=== PATIENT | male | born 1970 | race Hispanic/Latino ===

== ENCOUNTER 2016-12-14 07:19 | Inpatient (IN) | payer SELFPAY ==
[2016-12-14] MEDS ORDERED: Pantoprazole 40 MG VIAL ONE (07:47)
[2016-12-14 08:12] LABS: Bilirubin Unable to Interpret (Negative); Blood, Urine Unable to Interpret (Negative); Glucose, Urine (Dipstick) Unable to Interpret mg/dL (Negative); Ketone, Urine Unable to Interpret mg/dL (Negative); Nitrite Unable to Interpret (Negative); Protein, Urine (Dipstick) Unable to Interpret mg/dL (Neg-Trace); Urobilinogen UNABLE TO INTERPRET mg/dL (0.2-1.0)
[2016-12-14 08:17] LABS: Bacteria/HPF 2+ HPF (None Seen); Hyaline Casts/LPF 0-3 HYALINE CAST LPF (0-3 Hyaline); Squamous Epithelial 0-3 HPF (0-3)
[2016-12-14 08:18] LABS: Transitional Epithelial 0-3 HPF (0-3)
[2016-12-14 08:21] LABS: #Eosinphils 0.2 thou/uL (0.0-0.7); #Lymphocytes 1.3 thou/uL (1.20-3.40); #Monocytes 0.6 thou/uL (0.11-0.59); #Neutrophils 6.7 thou/uL (1.40-6.50); %Eosinophils 2.8 % (0.0-10.0); %Lymphocytes 14.6 % (21.0-51.0); Hematocrit 45.6 % (42.0-52.0); Mean Platelet Volume 10.6 fL (7.4-10.4); Red Blood Cell (RBC) Count 5.17 mill/uL (4.70-6.10); White Blood Cell (WBC) Count 8.8 thou/uL (4.8-10.8)
[2016-12-14 09:11] LABS: Calcium 8.8 mg/dL (7.8-10.44); Chloride 108 mmol/L (98-107)
[2016-12-14 09:12] LABS: Globulin 2.8 g/dL (2.4-3.5); Protein, Total 6.6 g/dL (6.0-8.3)
[2016-12-14 09:14] LABS: Anion Gap 9 mmol/L (10-20); Bilirubin, Total 0.8 mg/dL (0.2-1.2); Carbon Dioxide 26 mmol/L (22-29)
[2016-12-14 09:15] LABS: Alkaline Phosphatase 95 U/L (40-150); Calc. Creatinine Clearance 0 mL/min (70-130); Estimated GFR-MDRD Greater than 90
[2016-12-14 09:16] LABS: BUN (Urea Nitrogen) 7 mg/dL (8.9-20.6)
[2016-12-14 09:17] LABS: AST (SGOT) 21 U/L (5-34)
[2016-12-14 09:18] LABS: ALT (SGPT) 20 U/L (8-55); Lipase 18 U/L (8-78)
--- NOTE | 2016-12-14 09:35 | CT ---
ABDOMEN AND PELVIS CT SCAN WITHOUT IV CONTRAST: Date: 12/14/16 HISTORY: 46-year-old male with hematuria, with right flank pain and right lower quadrant pain. FINDINGS: Lung bases are clear. Small hiatal hernia with some air within a mildly dilated distal esophagus. Vi sualized liver, gallbladder, pancreas, spleen, and adrenal glands are unremarkable. No renal calculu s or acute obstruction. There is an approximately 1.7 cm diameter exophytic mass off the posterio r aspect of the mid right kidney which appears to be essentially isodense to renal parenchyma. Possi bilities include that of a solid mass versus possibility of a hemorrhagic cyst, although I favor a s olid mass. Follow-up additional imaging to include a with and without contrast abdomen CT scan with multiphase imaging with renal mass protocol is recommended for further assessment of this on a none mergent basis. Small bilateral fat-containing inguinal hernias, larger on the right side. There is a normal appearing appendix. No bowel obstruction. No abscess, adenopathy, or abnormal flui d collection. IMPRESSION: Approximately 1.7 cm diameter exophytic mass off the posterolateral aspect of the right mid kidney i sodense to renal parenchyma, certainly raising concern for a small solid renal mass or malignancy. F ollow-up additional imaging as above is recommended. Small bilateral fat-containing inguinal hernias , slightly larger on the right side. CODE T. POS: [facility]
[2016-12-14] MEDS ORDERED: Diabetic Tussin 200 MG/10 ML UDCUP PO PRN (12:05)
[2016-12-14] MEDS ORDERED: Ondansetron HCl/PF 4 MG/2 ML Vial IVP PRN (12:05)
[2016-12-14] MEDS ORDERED: Ondansetron ODT 4 MG TAB PO PRN (12:05)
[2016-12-14] MEDS ORDERED: Loratadine 10 MG TAB PO PRN (12:05)
[2016-12-14] MEDS ORDERED: Acetaminophen 325 MG TAB PO PRN (12:05)
[2016-12-14] MEDS ORDERED: Sodium Chloride 0.65% Nasal 44 ML BOT EA NARE PRN (12:05)
[2016-12-14] MEDS ORDERED: HYDROcodone/Acetaminophen 5/325 mg Tablet PO PRN (12:05)
[2016-12-14] MEDS ORDERED: Zolpidem Tartrate 5 MG TAB PO PRN (12:05)
[2016-12-14] MEDS ORDERED: Milk Of Magnesia 30 ML UDCUP PO PRN (12:05)
[2016-12-14] MEDS ORDERED: cloNIDine 0.1 MG TAB PO PRN (12:05)
[2016-12-14] MEDS ORDERED: Loperamide HCl 2 MG CAP PO PRN (12:05)
[2016-12-14] MEDS ORDERED: Mag-Al 1200 mg/1200 mg/30 ML UDCUP PO PRN (12:05)
[2016-12-14] MEDS ORDERED: hydrALAZINE 20 MG/ML VIAL SLOW IVP PRN (12:05)
[2016-12-14] MEDS ORDERED: Senokot 8.6 MG TAB PO PRN (12:05)
[2016-12-14 12:28] VITALS: BMI 31.6
[2016-12-14] MEDS ORDERED: cefTRIAXone\\ROCEPHIN 1 GM in Sodium Chloride 0.9% 100 ML IVPB SCH (12:30)
--- NOTE | 2016-12-14 12:42 | HP ---
PRIMARY CARE PHYSICIAN: Halina Teresa M.D. REASON FOR ADMISSION: Gross hematuria and diagnosis of exophytic kidney tumor. 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 Patient reports that thi s morning when he went to urination, he noticed gross blood with urine. He was concerned about and decided to come to emergency room for evaluation. Subsequently, he was experiencing dysuria. He al so has right-sided flank pain and right lower quadrant pain for about a week. Patient never had thi s type of hematuria in the past and he did not have any UTI symptoms. He did not have any fever or chills. He denies any trauma. He denies any blood thinner medication. He denies any chest pain, p alpitation or shortness of breath. There is no specific aggravating or relieving factor for right f lank pain. It is about 3/10 in intensity. The patient denies any fever, chills, chest pain, palpitation, cough, shortness of breath. He denie s any lower extremity edema. He denies any orthopnea, PND. REVIEW OF SYSTEMS: The following complete review of systems was negative, unless otherwise mentione d in the HPI or below: Constitutional: Weight loss or gain, ability to conduct usual activities. Skin: Rash, itching. Eyes: Double vision, pain. ENT/Mouth: Nose bleeding, neck stiffness, pain, tenderness. Cardiovascular: Palpitations, dyspnea on exertion, orthopnea. Respiratory: Shortness of breath, wheezing, cough, hemoptysis, fever or night sweats. Gastrointestinal: Poor appetite, abdominal pain, heartburn, nausea, vomiting, constipation, or diar maldonado. Genitourinary: Urgency, frequency, dysuria, nocturia. Musculoskeletal: Pain, swelling. Neurologic/Psychiatric: Anxiety, depression. Allergy/Immunologic: Skin rash, bleeding tendency. Please see my HPI for pertinent positive and negative. All other review of systems reviewed and neg ative except as mentioned in the HPI. PAST MEDICAL HISTORY: Dyslipidemia, but not on any specific treatment. PAST SURGICAL HISTORY: Reviewed and negative. PAST PSYCHIATRIC HISTORY: Reviewed and negative. SOCIAL HISTORY: Patient is and lives at home with his family. No history of tobacco abuse, but he drinks about 5 drinks per day. He denies any other illicit drug abuse. FAMILY HISTORY: Mother had renal cell carcinoma. No strong family history of coronary artery disea se or stroke. ALLERGIES: No known drug allergies. CURRENT HOME MEDICATIONS: The patient is not taking any prescribed or non-prescribed medication. EMERGENCY ROOM COURSE: Patient is given Protonix 40 mg and IV fluid. PHYSICAL EXAMINATION: VITAL SIGNS: On arrival, blood pressure 136/92, pulse 81, respiratory rate 18, temperature 98.0, sa turation 98% on room air, and weight 92.5 kilograms. GENERAL: Patient is currently alert, awake, no obvious acute distress. HEAD: Normocephalic, atraumatic. EYES: Pupils round and reactive to light. Extraocular muscles intact. ENT: Oropharynx within normal limits. Moist mucous membranes. No oral lesions. No pharyngeal brad thema, no exudates. NECK: Supple. Range of motion is normal. No meningeal signs of irritation. LUNGS: Clear to auscultation without any rhonchi or rales. CARDIAC: S1, S2 regular. No murmur, no gallop, no rub. ABDOMEN: Soft, bowel sounds present, mild vague discomfort noted in right upper and lower quadrant. No peritoneal sign, no organomegaly, no mass, no suprapubic tenderness. BACK: On examination, right-sided CVA tenderness. EXTREMITIES: Upper extremity passive movements of all joints are normal. Lower extremities, no justine ma. Good peripheral pulsation. SKIN: No skin rash. HEMATOLOGICAL SYSTEM: No lymphadenopathy. PSYCHIATRIC: Normal affect. IMAGING AND SIGNIFICANT LABORATORY DATA: 1. CT of the abdomen and pelvis showing 1.7 cm exophytic mass of the posterolateral aspect of right mid kidney, concerning for malignancy. 2. CBC: WBC 8.8, hemoglobin 15.1, platelets 156. 3. BMP: Sodium 139, potassium 4.3, chloride 108, carbon dioxide 26, BUN 97, creatinine 0.84, gluco se 107, and calcium 8.8. 4. LFT: AST 21, ALT 20, alkaline phosphatase 95, albumin 3.8, lipase 18. Urinalysis suggestive of hematuria. ASSESSMENT AND PLAN/IMPRESSION: 1. Gross hematuria. Differential diagnosis is a renal tumor versus urinary tract infection. We wi ll send urine culture and we will continue with Rocephin 1 gram q.24 hours empirically. We will als o consult Urology for their expert opinion. 2. A 1.7 cm exophytic mass on the right kidney concerning for renal cell carcinoma versus benign tu mor. At this point, we will consult Urology for their opinion. This patient will need at least out patient close Urology followup to address this issue. 3. Alcohol abuse. We will continue folic acid 1 mg p.o. daily and thiamine 100 mg p.o. daily. Cou nseling given to avoid alcohol products. 4. Flank pain, likely related with renal tumor. We will control his pain with oral pain medication s. 5. Deep venous thrombosis prophylaxis, no Lovenox because of hematuria. 6. Gastrointestinal prophylaxis, Pepcid 20 mg p.o. b.i.d. 7. Code status: The patient is FULL CODE. The patient's is surrogate decision maker. Disposition plan based on clinical course based on Urology recommendation. Plan of care discussed w ith the patient in detail.
[2016-12-14] MEDS: cefTRIAXone\\ROCEPHIN 1 GM, Syringe 0.4 ML in Sterile Water 9.6 ML SLOW IVP SCH (13:34)
[2016-12-14] MEDS ORDERED: FLU VACC QS2017-18 36 mo. & older 0.5 ML SYRINGE IM ONE (21:00)
[2016-12-14] MEDS: Famotidine 20 MG TAB PO SCH (21:16)
--- NOTE | 2016-12-15 03:48 | CON ---
DATE OF CONSULTATION: 12/14/2016 REASON FOR CONSULTATION: 1. Hematuria. 2. Right renal exophytic 1.7 cm mass. HISTORY OF PRESENT ILLNESS: Mr. 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 The patient reports some right lower quadrant discomfort as well as right back disc omfort. Does not rate his overall pain is overly severe. He notes some positional characteristics to the pain. He does not relate the pain specifically to his urinary tract. He does not report [place] or vomiting, does not report colicky type symptoms. He has some days pain free periods and othe r days more or less continuous discomfort. The patient was admitted through the ER where a CT scan of the abdomen and pelvis was performed, which demonstrated the presence of 1.7 cm exophytic cyst on his right kidney. Mr. Leslie reports that he has not had any significant hematuria since admissio n, but does report dark colored urine at home, possibly with blood in it. ALLERGIES: The patient reports multiple allergies to ASPIRIN, CITRIC ACID, IBUPROFEN and SODIUM BIC ARBONATE. Apparently, these mostly relate to ASPIRIN and NSAID allergies. HOME MEDICATIONS: The patient takes antihistamines at home, also an acid substance mostly over the counter. PAST MEDICAL HISTORY: The patient did have a history of depression in the past when he was under a lot of stress, otherwise has been relatively free of hospitalizations. FAMILY MEDICAL HISTORY: The patient's father suffers from large prostate gland with obstructive voi ding symptoms. The patient's mother was recently diagnosed with renal cancer and had a surgery for that. There are no other family members with renal or genitourinary malignancies. PHYSICAL EXAMINATION: VITAL SIGNS: The patient is afebrile since admission with a temperature of 98.6 at present, pulse 7 6, respirations 18 and blood pressure is 132/77. GENERAL: This is a pleasant, awake, alert, ambulatory Moldovan speaking only male in no dis tress. HEENT: Extraocular movements are intact. Sclerae are anicteric. Oropharynx is clear. NECK: Supple. LUNGS: Clear to auscultation bilaterally. CARDIAC: Regular rate and rhythm without murmur, rub or gallop. ABDOMEN: Soft and nontender anteriorly. The patient reports some right lower quadrant discomfort. He notes that he has to palpate in order to feel uncomfortable on the right lower quadrant. BACK: There is no true costovertebral angle tenderness. The patient reports that he has discomfort about 1/10 on the pain scale in his right flank area. He does not have any reflux; however, on per cussion. The patient notes the positional nature to his discomfort, which can be induced by certain stretching motions. GENITOURINARY: Phallus is without lesion. Urethral meatus appears adequate. Phallus has circumcis ed appearance. Scrotum and contents, testes appear benign. Palpation of inguinal canals finds no e vidence of significant hernia. By report, there is bilateral inguinal hernias containing fat on the CT scan. These are not palpated today on Valsalva, however. Digital rectal examination is perform ed and finds a massively enlarged prostate gland, which is clearly over 45 grams in size. It has bi lateral nodular characteristic to it, and I agree it may be suspicious. The patient does not report the discomfort with digital rectal examination. IMAGING STUDIES: CT scan of the abdomen and pelvis was obtained on 12/14/2016 at 07:44 a.m. This s tudy demonstrates the presence of an exophytic 1.7 cm diameter mass of the posterolateral aspect of the right mid kidney, which is isodense in the renal parenchyma noncontrast CT scan. LABORATORY STUDIES: The patient has multiple elevated inflammatory markers. His white count is not elevated, but there is a left shift present to his overall differential. The patient's absolute ne utrophil count is elevated at 6.7 thousand. The neutrophil percentage is 75.6%. Serum chemistry sh ows reasonable kidney function with a blood urea nitrogen of 7 and creatinine of 0.84. Estimated gl omerular filtration rate is greater than 90. A urinalysis obtained this morning at admission showed the color of the patient's urine as red. This is possibly secondary to taking over the counter med ications based on my assessment. Multiple tests were unable to interpret to category suggesting the use of Pyridium or AZO. Urine contains on microscopic analysis contained 7-10 red cells per high p ower field and 11-20 white cells per high power field as well as 2+ bacteria. It is highly suggesti ve of a urinary tract infection. A 4-6 renal epithelial cells were also observed. MICROBIOLOGY: There are no available culture results at this point in time. I reviewed the chart, it appears as if a urine culture was obtained and sent sometime this afternoon. The patient did, ho wever, receive Rocephin prior to the collection of the culture. ASSESSMENT AND PLAN: 1. Probable urinary tract infection resulting in the patient's lower urinary tract symptoms. Anurag justin the patient's current culture results. Consideration of outpatient management of a urinary tract infection should be given. Since patient has a massively enlarged prostate gland, consideration of a prostate type course of antibiotics such as Cipro or cefprozil for a period of 1 month should be c onsidered. 2. Benign prostatic hypertrophy with enlargement of the patient's prostate gland was quite enlarged . He may benefit from prostate specific medications, although dutasteride and finasteride have a re latively slow onset, they may do this patient more good over the intermission coordinator than other medications ball ch as alpha-blockers. Alpha-blockers may provide some immediate relief and he does note some change s in his voiding symptoms over the last few weeks. Treatment of a urinary tract infection may also result in some relief of the patient's urgency symptoms. 3. New finding of renal mass, 1.7 cm exophytic cyst on the patient's right kidney. This mass shoul d best be classified simply as a cyst for now. This is isodensed with the parenchyma of the kidney suggesting the possibility of a true renal mass, although hyperdense cyst can also have this configu ration and radiologic presentation. The patient's family medical history of renal malignancy is not ed. Patient would benefit from a CT renal mass protocol and possibly renal ultrasound to further ch aracterize this exophytic cyst. Patient does not need to remain in the hospital even if this cyst is ultimately classed a Bosniak 3 or 4. Treatment of this can be performed on an elective basis.
[2016-12-15 04:51] VITALS: TEMP 98.1
[2016-12-15 05:20] LABS: #Eosinphils 0.2 thou/uL (0.0-0.7); #Lymphocytes 1.7 thou/uL (1.20-3.40); #Monocytes 0.6 thou/uL (0.11-0.59); #Neutrophils 3.9 thou/uL (1.40-6.50); %Basophils 0.1 % (0.0-1.0); %Eosinophils 2.9 % (0.0-10.0); %Lymphocytes 26.9 % (21.0-51.0); %Monocytes 9.7 % (0.0-10.0); Mean Platelet Volume 9.6 fL (7.4-10.4); Red Blood Cell (RBC) Count 4.47 mill/uL (4.70-6.10); White Blood Cell (WBC) Count 6.4 thou/uL (4.8-10.8)
[2016-12-15 05:42] LABS: Anion Gap 9 mmol/L (10-20); BUN (Urea Nitrogen) 10 mg/dL (8.9-20.6); Calc. Creatinine Clearance 149 mL/min (70-130); Calcium 9.1 mg/dL (7.8-10.44); Carbon Dioxide 26 mmol/L (22-29); Chloride 108 mmol/L (98-107); Estimated GFR-MDRD Greater than 90
[2016-12-15] MEDS: Famotidine 20 MG TAB PO SCH (07:53)
[2016-12-15 08:27] VITALS: BP 143/84
[2016-12-15] MEDS ORDERED: Folic Acid 1 MG TAB PO SCH (09:00)
--- NOTE | 2016-12-15 09:00 | CT ---
CT ABDOMEN AND PELVIS WITH CONTRAST: Technique: Multiple axial tomograms were obtained through the abdomen with IV enhancement and portal venous phase. Images were obtained through the abdomen and pelvis in a delayed portal venous phase. Comparison: Noncontrast CT performed yesterday. Indications: Follow up isodense exophytic mass from the right kidney noted on yesterday's noncontras t CT. FINDINGS: Exophytic mass from the upper lateral right kidney is again seen. This mass is measured at 1.7 cm. P recontrast densities on yesterday's exam are recorded at 28 Hounsfield units. Portal venous densitie s recorded at 32 Hounsfield units, and the delayed venous density recorded at 31 Hounsfield units. There is another 1.0 cm low density mass in the posterior right renal cortex slightly more inferior. This lesion was isodense on the precontrast exam as well. Post contrast densities within this lesio n recorded at 13 Hounsfield units. The left kidney is unremarkable with no lesions seen. Visualized liver, spleen, pancreas, and adrena l glands appear unremarkable. Bowel loops unremarkable. There is a focal area of sclerosis in the right superior ramus measuring approximately 1 cm. This is a nonspecific focus of sclerosis. A bone island would be suspected. Images through the pelvis were obtained on the delayed venous phase study and the bladder is mildly contracted. There is mild bladder wall thickening and mild trabeculation of the bladder. Prostate is upper normal size. Abdominal aorta is normal caliber. IMPRESSION: 1. There are two lesions in the right kidney, one of which is exophytic measuring 1.7 cm and the oth er is cortical measuring 1.0 cm. Both are isodense on the precontrast study. There is minimal enhanc ement associated with these lesions. Complex cysts are favored. Recommend correlation with renal ult rasound to confirm cystic nature of these lesions. 2. The bladder shows evidence of bladder wall thickening and mild trabeculation. POS: [facility]
--- NOTE | 2016-12-15 12:53 | ULT ---
RENAL SONOGRAM: History: Renal mass. Comparison: CT abdomen 12-15-16. FINDINGS: The right kidney is 12.5 cm in length. An exophytic oval cystic lesion projecting laterally is 2.0 x 1.4 cm greatest diameters on today's sonogram. A 1.0 cm cyst is also seen within the cortex of the right kidney. No hydronephrosis is visible. Left kidney is 12.5 cm in length and has a normal appear ance. Urinary bladder is incompletely distended. IMPRESSION: Right renal cyst. No solid masses are visible. POS: [facility]
--- NOTE | 2016-12-15 13:34 | DIS ---
DATE OF ADMISSION: 12/14/2016 DATE OF DISCHARGE: 12/15/2016 PRIMARY CARE PHYSICIAN: Dr. Halina Teresa. DISCHARGE DISPOSITION: Home. PRIMARY DISCHARGE DIAGNOSES: 1. Gross hematuria. 2. Urinary tract infection with prostatitis. SECONDARY DISCHARGE DIAGNOSES: 1. Alcohol abuse. 2. Obesity with BMI 31. 3. Renal cyst. PRIMARY PROCEDURE/OPERATION: None. RADIOLOGICAL INVESTIGATION: CT of the abdomen and pelvis initially suspected for solid tumor. Subs equently, we did a renal mass, CT abdomen, which was concerning for cyst and after that we confirmed renal cyst with ultrasound. In short, this patient does not have any solid tumor. He has renal cy st on the right side. SIGNIFICANT LABORATORY DATA: CBC normal. BMP normal. LFT normal. Urinalysis, hematuria. DISCHARGE MEDICATIONS: Ciprofloxacin 500 mg p.o. b.i.d., Flomax 0.4 mg p.o. daily. CONTRAINDICATIONS: None. CODE STATUS: FULL CODE. INPATIENT CONSULTANTS: Dr. Reinaldo Alves was consulted while in hospital. TEST RESULTS PENDING ON DISCHARGE: None. ALLERGIES: ASPIRIN, IBUPROFEN. DISCHARGE PLAN: Post hospital, the patient will follow up with Dr. Alves as instructed. The darshan t is advised to make appointment with primary care physician. HOSPITAL COURSE: A 46-year-old male who had an episode of gross hematuria with urination and that i s why he was concerned about it and decided to come to the emergency room. He was also having dysur ia. Initially in the emergency room, abdomen and pelvis CT scan was done, which showed a renal mass on the right kidney and that is why we admitted this patient in hospital. We consulted Urology and Urology did renal mass protocol that was concerning for underlying cyst. Subsequently, we did a re nal ultrasound that confirmed a right renal cyst. There was no solid tumor. Dr. Alves recommended to continue antibiotic therapy and we also started for posted medicine. [facility] after discharge. The patient is seen and examined at bedside today, patient was given information about test results with the family member educational sign language interpreter. PHYSICAL EXAMINAITON: VITAL SIGNS: Currently, temperature 98.1, pulse 70, respiratory rate 18, saturation 94%, blood pres sure 143/84, weight 202 pounds. GENERAL: The patient is currently alert, awake, no acute distress. HEAD: Normocephalic, atraumatic. LUNGS: Clear. CARDIAC: S1, S2 regular without any murmur. ABDOMEN: Soft and benign. EXTREMITIES: No edema. NEUROLOGIC: Nonfocal examination. Overall, this patient is medically stable for discharge today.
[2016-12-15] MEDS: cefTRIAXone\\ROCEPHIN 1 GM, Syringe 0.4 ML in Sterile Water 9.6 ML SLOW IVP SCH (13:56)
--- NOTE | 2016-12-15 15:31 | PDOC.PN ---
- Subjective Encounter Start Date: 12/15/16 Encounter Start Time: 15:30 -: old records requested/rev Patient seen and examined. No new complaints. No overnight events - Objective Resuscitation Status: Resuscitation Status FULL:Full Resuscitation MAR Reviewed: Yes Vital Signs & Weight: Vital Signs (12 hours) Temp Pulse Resp BP Pulse Ox 12/15/16 07:46 98.1 F 70 18 12/15/16 07:26 98.1 F 73 16 143/84 H 94 L 12/15/16 04:00 98.1 F 70 18 114/80 96 I&O: 12/14/16 12/15/16 12/16/16 06:59 06:59 06:59 Intake Total 660 240 Output Total 550 Balance 110 240 Result Diagrams: 12/15/16 04:56 12/15/16 04:56 Radiology Reviewed by me: Yes Phys Exam - Physical Examination Constitutional: NAD HEENT: PERRLA, moist MMs, sclera anicteric Neck: no JVD, supple Respiratory: no wheezing, no rales, no rhonchi Cardiovascular: RRR, no significant murmur, no rub Gastrointestinal: soft, non-tender, no distention, positive bowel sounds Musculoskeletal: no edema, pulses present Neurological: non-focal, normal sensation, moves all 4 limbs Psychiatric: normal affect, A&O x 3 Skin: no rash, normal turgor Dx/Plan (1) BPH (benign prostatic hyperplasia) Code(s): N40.0 - BENIGN PROSTATIC HYPERPLASIA WITHOUT LOWER URINRY TRACT SYMP Status: Chronic (2) Renal mass Code(s): N28.89 - OTHER SPECIFIED DISORDERS OF KIDNEY AND URETER Status: Ruled -out (3) Alcohol abuse Code(s): F10.10 - ALCOHOL ABUSE, UNCOMPLICATED Status: Chronic (4) Obesity (BMI 30.0-34.9) Code(s): E66.9 - OBESITY, UNSPECIFIED Status: Chronic (5) UTI (urinary tract infection) Status: Chronic - Plan cont current plan of care, plan discussed w/ family, continue antibiotics * CIPRO * FLOMAX * FOLLOW UP WITH UROLOGY * MEDICATION REVIEWED BELOW * SYMPTOMATIC TREATMENT * DISCHARGE. Review of Systems - Review of Systems ENT: negative: Ear Pain, Ear Discharge, Nose Pain, Nose Discharge, Nose Congestion, Mouth Pain, Mouth Swelling, Throat Pain, Throat Swelling, Other Respiratory: negative: Cough, Dry, Shortness of Breath, Hemoptysis, SOB with Excertion, Pleuritic Pain, Sputum, Wheezing Cardiovascular: negative: Chest Pain, Palpitations, Orthopnea, Paroxysmal Noc. Dyspnea, Edema, Light Headedness, Other Gastrointestinal: negative: Nausea, Vomiting, Abdominal Pain, Diarrhea, Constipation, Melena, Hematochezia, Other Genitourinary: negative: Dysuria, Frequency, Incontinence, Hematuria, Retention , Other Musculoskeletal: negative: Neck Pain, Shoulder Pain, Arm Pain, Back Pain, Hand Pain, Leg Pain, Foot Pain, Other Skin: negative: Rash, Lesions, Fly, Bruising, Other - Medications/Allergies Allergies/Adverse Reactions: Allergies Allergy/AdvReac Type Severity Reaction Status Date / Time aspirin [From [facility]-Beck[facility]eyer] Allergy Verified 12/14/16 12:16 citric acid Allergy Verified 12/14/16 12:16 [From [facility]-Beck[facility]] ibuprofen [From Advil] Allergy Verified 12/14/16 12:16 sodium bicarbonate Allergy Verified 12/14/16 12:16 [From Hannah-Beck[facility]eyer] Medications: Current Medications Acetaminophen (Tylenol) 650 mg PO Q4H PRN PRN Reason: Headache/Fever or Pain Hydrocodone Bitart/Acetaminophen ([place] 5/325) 1 tab PO Q4H PRN PRN Reason: Moderate Pain (4-6) Al Hydroxide/Mg Hydroxide (Maalox) 30 ml PO Q6H PRN PRN Reason: Heartburn or Indigestion Clonidine (Catapres) 0.1 mg PO Q4H PRN PRN Reason: Systolic BP > 180 Famotidine (Pepcid) 20 mg PO BID [facility] Last Admin: 12/15/16 07:53 Dose: Not Given Folic Acid (Folvite) 1 mg PO DAILY [facility] [place] Last Admin: 12/15/16 07:53 Dose: Not Given Guaifenesin (Robitussin Sf) 200 mg PO Q4H PRN PRN Reason: Cough Hydralazine HCl (Apresoline) 10 mg SLOW IVP Q4H PRN PRN Reason: Systolic BP > 180 Ceftriaxone Sodium 1 gm/ (Syringe 0.4 ml/ Sterile Water) 10 mls @ 120 mls/hr SLOW IVP 1300 [facility] [place] Last Admin: 12/15/16 13:56 Dose: 10 mls Loperamide HCl (Imodium) 2 mg PO PRN PRN PRN Reason: Diarrhea/Loose Stools Loratadine (Claritin) 10 mg PO DAILYPRN PRN PRN Reason: Sinus Symptoms Magnesium Hydroxide (Milk Of Magnesium) 30 ml PO DAILYPRN PRN PRN Reason: Constipation Ondansetron HCl (Zofran Odt) 4 mg PO Q6H PRN PRN Reason: Nausea/Vomiting Ondansetron HCl (Zofran) 4 mg IVP Q6H PRN PRN Reason: Nausea/Vomiting Senna (Senokot) 2 tab PO HSPRN PRN PRN Reason: Constipation Sodium Chloride (Irene Nasal [place]onson 0.65%) 0 ml EA NARE QIDPRN PRN PRN Reason: Nasal Congestion Sodium Chloride (Flush - Normal Saline) 10 ml IVF Q12HR [facility] [place] Last Admin: 12/15/16 08:00 Dose: 10 ml Sodium Chloride (Flush - Normal Saline) 10 ml IVF PRN PRN PRN Reason: Saline Flush Thiamine HCl (Thiamine) 100 mg PO DAILY [facility] [place] Last Admin: 12/15/16 07:53 Dose: Not Given Zolpidem Tartrate (Ambien) 5 mg PO HSPRN PRN PRN Reason: Insomnia
== END 2016-12-15 17:43 | disposition home or self-care (01) | DRG 690 ==
LOC: ERS 07:19 → T4-B 10:16
PROVIDERS: ADMIT Internal Medicine; ATTEND Internal Medicine
DX: N39.0 Urinary tract infection, site not specified (principal); N28.1 Cyst of kidney, acquired; E66.9 Obesity, unspecified; F10.10 Alcohol abuse, uncomplicated; R31.0 Gross hematuria; Z68.31 Body mass index [BMI] 31.0-31.9, adult; Z88.6 Allergy status to analgesic agent; N40.0 Benign prostatic hyperplasia without lower urinary tract symptoms
CPT/HCPCS: 36415; 74160; 74176; 76770; 80048; 80053; 81003; 81015; 83690; 85025; 86140; 87086; 90471; 90682; 96361; 96374; A4216; C9113; G0008; J0696; J7050; Q2036

== ENCOUNTER 2018-09-08 10:15 | Outpatient (CLI) | payer OTHER ==
--- NOTE | 2018-09-08 11:04 | ULT ---
BILATERAL RENAL ULTRASOUND: HISTORY: Renal cysts FINDINGS: The right kidney measures 12 cm in length and the left kidney measures 12.6 cm in length. No hydronep hrosis is seen on either side. There are cysts in the right kidney measuring 2.2 and 1.2 cm respectively. The urinary bladder is well distended with a volume of 350 cc. Bilateral ureteral jets are present. IMPRESSION: Right renal cysts.
== END 2018-09-08 10:16 | disposition home or self-care (01) ==
LOC: BICULT 10:15
DX: N28.1 Cyst of kidney, acquired (principal)
CPT/HCPCS: 76770

== ENCOUNTER 2021-03-13 10:51 | Outpatient (CLI) | payer OTHER | END 2021-03-13 10:52 | disposition home or self-care (01) | LOC: BICULT 10:51 | PROVIDERS: ATTEND Urology | DX: N28.1 Cyst of kidney, acquired (principal) | CPT/HCPCS: 76770 ==

== ENCOUNTER 2022-10-16 18:35 | Observation (INO) | payer SELFPAY ==
[2022-10-16] MEDS ORDERED: Nitroglycerin 2% Ointment 1 INCH/1 GM Packet ONE (20:57)
[2022-10-16] MEDS ORDERED: Clopidogrel Bisulfate 75 MG TAB ONE (20:57)
[2022-10-16 20:59] LABS: #Eosinphils 0.1 thou/uL (0.0-0.7); #Monocytes 0.6 thou/uL (0.11-0.59); #Neutrophils 6.2 thou/uL (1.40-6.50); %Basophils 0.2 % (0.0-1.0); %Eosinophils 1.1 % (0.0-10.0); %Lymphocytes 15.4 % (21.0-51.0); %Monocytes 7.5 % (0.0-10.0); %Neutrophils 75.6 % (42.0-75.0); Hematocrit 42.9 % (42.0-52.0); Hemoglobin 13.9 g/dL (14.0-18.0); Mean Corpuscular HGB CONC 32.4 g/dL (32.0-36.0); Mean Corpuscular Hemoglobin 28.8 pg (27.0-31.0); Mean Corpuscular Volume 88.8 fl (78.0-98.0); Mean Platelet Volume 11.4 fL (7.4-10.4); Platelet Count 165 10x3/uL (130-400); RBC Distribution Width 12.7 % (11.5-14.5); Red Blood Cell (RBC) Count 4.83 mill/uL (4.70-6.10); White Blood Cell (WBC) Count 8.1 10x3/uL (4.8-10.8)
[2022-10-16 21:28] LABS: Troponin I Less than 0.010 ng/mL (< 0.028)
[2022-10-16 21:33] LABS: ALT (SGPT) 40 U/L (8-55); AST (SGOT) 26 U/L (5-34); Albumin 4.4 g/dL (3.5-5.0); Alkaline Phosphatase 127 U/L (40-110); Anion Gap 14 mmol/L (10-20); BUN (Urea Nitrogen) 13 mg/dL (8.4-25.7); Bilirubin, Total 0.3 mg/dL (0.2-1.2); Calc. Creatinine Clearance 0 mL/min (70-130); Calcium 9.6 mg/dL (7.8-10.44); Carbon Dioxide 21 mmol/L (22-29); Chloride 109 mmol/L (98-107); Estimated GFR 104; Globulin 3.4 g/dL (2.4-3.5); Glucose 119 mg/dL (70-105); Potassium 3.7 mmol/L (3.5-5.1); Protein, Total 7.8 g/dL (6.0-8.3); Sodium 140 mmol/L (136-145)
[2022-10-16] MEDS ORDERED: Acetaminophen 325 MG TAB PO PRN (22:28)
[2022-10-16] MEDS ORDERED: Senokot S 8.6-50 MG TAB PO PRN (22:28)
[2022-10-16] MEDS ORDERED: Ondansetron ODT 4 MG TAB PO PRN (22:28)
[2022-10-16 23:29] LABS: Hemoglobin A1c 5.4 % (4.0-6.0)
[2022-10-16 23:45] LABS: Troponin I Less than 0.010 ng/mL (< 0.028)
[2022-10-17 00:24] VITALS: BMI 33.8
[2022-10-17 02:21] LABS: #Eosinphils 0.1 thou/uL (0.0-0.7); #Monocytes 0.6 thou/uL (0.11-0.59); #Neutrophils 5.3 thou/uL (1.40-6.50); %Basophils 0.1 % (0.0-1.0); %Eosinophils 1.3 % (0.0-10.0); %Lymphocytes 24.6 % (21.0-51.0); %Monocytes 7.4 % (0.0-10.0); %Neutrophils 66.3 % (42.0-75.0); Hematocrit 40.7 % (42.0-52.0); Hemoglobin 13.4 g/dL (14.0-18.0); Mean Corpuscular HGB CONC 32.9 g/dL (32.0-36.0); Mean Corpuscular Hemoglobin 29.1 pg (27.0-31.0); Mean Corpuscular Volume 88.5 fl (78.0-98.0); Mean Platelet Volume 11.8 fL (7.4-10.4); Platelet Count 168 10x3/uL (130-400); RBC Distribution Width 12.7 % (11.5-14.5)
[2022-10-17 02:47] LABS: Troponin I Less than 0.010 ng/mL (< 0.028)
[2022-10-17 03:14] LABS: Anion Gap 16 mmol/L (10-20); BUN (Urea Nitrogen) 11 mg/dL (8.4-25.7); Calc. Creatinine Clearance 155 mL/min (70-130); Calcium 9.1 mg/dL (7.8-10.44); Carbon Dioxide 20 mmol/L (22-29); Chloride 108 mmol/L (98-107); Estimated GFR 108; Glucose 128 mg/dL (70-105); Potassium 3.5 mmol/L (3.5-5.1); Sodium 140 mmol/L (136-145)
[2022-10-17] MEDS ORDERED: Famotidine 20 MG TAB PO SCH (09:00)
[2022-10-17] MEDS ORDERED: Lisinopril/Hydrochlorothiazide 10 mg/12.5 mg Tablet PO SCH (09:00)
[2022-10-17] MEDS ORDERED: ADENOSINE 60 MG/20 ML SDV ONE (12:53)
[2022-10-17 13:02] VITALS: BP 147/82; TEMP 98.1
== END 2022-10-17 15:53 | disposition home or self-care (01) ==
LOC: ERS 18:35 → 2SW 22:41
PROVIDERS: ADMIT Student in an Organized Health Care Education/Training Program; ATTEND Internal Medicine
DX: R07.9 Chest pain, unspecified (principal); I07.1 Rheumatic tricuspid insufficiency; I10 Essential (primary) hypertension; E66.9 Obesity, unspecified; Z68.33 Body mass index [BMI] 33.0-33.9, adult; Z88.8 Allergy status to other drugs, medicaments and biological substances; Z88.5 Allergy status to narcotic agent; Z79.899 Other long term (current) drug therapy
CPT/HCPCS: 36415; 71045; 78452; 80048; 80053; 83036; 84484; 85025; 93005; 93017; 93306; 94760; A9500; G0378; J0153